=== PATIENT | female | born 1935 | race Caucasian/White ===

== ENCOUNTER 2017-01-02 18:59 | Inpatient (IN) | payer OTHER ==
[~2017-01-02] VITALS: Ht 162.6 cm; Wt 72.1 kg
--- NOTE | ~2017-01-02 | CT57 ---
[facility] A Service of [facility] RADIOLOGY TEXT RESULTS PATIENT: DINA KHALIL LOCATION: [facility] 472 : 36 UNIT #: [id number] AGE: [address]: Huang Arnold MD SEX: F ORDER DR: [id number] [facility] [address]. [place], [place] [address] [id number] I MR#: [id number] Acc #: [id number] NAME: DINA KHALIL : 1935 SEX: F STUDY DATE/TIME: 01/02/2017 21:39 UNIT: [facility] ROOM: [facility] STUDY DESCRIPTION: CT Chest Wo Cont Attending Physician: Laureen Torres M.D. Ordering Physician: Nikita Tanner M.D. Primary Care Physician: Jacque Loera M.D. MEDICAL IMAGING REPORT This report is preliminary unless electronic signature is present EXAM CT chest without contrast DATE: 01/02/2017 HISTORY Fell on Tuesday with back pain and abdominal pain. No bowel movement in 5 days. Pneumothorax seen in the left lower chest on CT abdomen earlier today. COMPARISON CT abdomen and pelvis 01/02/2017. No previous chest imaging at this institution for comparison. PROCEDURE 5 mm axial images through the chest without contrast. Sagittal and coronal reformatted images were obtained. This CT exam was performed with one or more of the following radiation dose reduction techniques: automatic exposure control, adjustment of mA and/or kV according to patient size, and iterative reconstruction. FINDINGS There is a small left basilar pneumothorax with mild atelectasis in the lingula and left lower lobe. No pleural effusion is seen. Mild emphysematous changes are present throughout both lungs. Right lung appears free of acute airspace disease. No mediastinal hematoma. Normal heart size. Tiny esophageal hiatal hernia. No acute displaced left rib fracture is identified. Compression deformity of the T12 vertebral body redemonstrated. No additional thoracic vertebral body fractures are but are identified. [facility] A Service of [facility] RADIOLOGY TEXT RESULTS PATIENT: DINA KHALIL LOCATION: [facility] 472-01 : 36 UNIT #: [id number] AGE: [address]: Huang Arnold MD SEX: F ORDER DR: IMPRESSION 1. Small left basilar pneumothorax with mild lingular and left lower lobe atelectasis. 2. No displaced left rib fracture is seen. 3. Mild emphysema. 4. T12 compression fracture. This has been described on the CT abdomen and pelvis study from the same date. No additional thoracic vertebral body fractures are seen. 5. small esophageal hiatal hernia. 6. Probable tiny gallstone, not included in the body of the report. Dictated by... Cayla Castillo M.D. THIS IS AN ELECTRONICALLY VERIFIED REPORT Cayla Castillo M.D. at 01/03/2017 9:56 AM SHANNON/ronnie TD: 01/03/2017 05:09 JOB #: [id number] MEDICAL IMAGING REPORT Page 1 of 1 COPY
--- NOTE | ~2017-01-02 | CR141 ---
[facility] A Service of [facility] RADIOLOGY TEXT RESULTS PATIENT: DINA KHALIL LOCATION: [place] [address]- : 36 UNIT #: [id number] AGE: [address]: Huang Arnold MD SEX: F ORDER DR: [id number] [facility] [address]. [place], [place] [address] [id number] I MR#: [id number] Acc #: [id number] NAME: DINA KHALIL : 1935 SEX: F STUDY DATE/TIME: 01/02/2017 20:08 UNIT: [facility] ROOM: [facility] STUDY DESCRIPTION: CR Hand Min 3 Views Lt Attending Physician: Laureen Torres M.D. Ordering Physician: Nikita Tanner M.D. Primary Care Physician: Jacque Loera M.D. MEDICAL IMAGING REPORT This report is preliminary unless electronic signature is present EXAM Left hand series HISTORY Trauma. Bruising. Fall . Pain. FINDINGS AP, lateral and oblique radiographs of the left hand are presented. Poor quality examination. The second digit is in flexion on the oblique radiograph and there is digital overlap on the lateral radiograph. No fracture. Degenerative changes in the interphalangeal joints most pronounced distal interphalangeal joint second digit. Mild degenerative changes basal joint of thumb. Chondrocalcinosis in the triangular fibrocartilage ligament. There is no soft tissue defect, subcutaneous air or radiodense foreign body. Is not well corticated calcification along the posterior aspect of the proximal carpal row on the lateral view. Favored to be chronic soft tissue calcification or possibly sequelae of remote trauma. Given its well corticated margins, chronic time course favored. There is no fracture donor site suggested. Dictated by... Leif Ambriz M.D. THIS IS AN ELECTRONICALLY VERIFIED REPORT Leif Ambriz M.D. at 01/03/2017 3:16 PM BINU/ronnie TD: 01/03/2017 02:16 JOB #: [id number] MEDICAL IMAGING REPORT [facility] A Service of [facility] & [facility] RADIOLOGY TEXT RESULTS PATIENT: DINA KHALIL LOCATION: [place] [address] : 36 UNIT #: [id number] AGE: [address]: Huang Arnold MD SEX: F ORDER DR: Page 1 of 1 COPY
--- NOTE | ~2017-01-02 | HP ---
Unit #: [id number] #: [id number] Patient: DINA KHALIL [id number] [address] [address] [id number] I MR#: [id number] NAME: DINA KHALIL ROOM: 472 Age: 81 Sex: F Admission Date: 01/02/2017 : 1935 Attending Physician: Laureen Torres M.D. Primary Care Physician: Jacque Loera M.D. HISTORY AND PHYSICAL CHIEF COMPLAINT Fall with T12 compression fracture, ileus, and tiny left pneumothorax. HISTORY This very pleasant 81-year-old female with GERD and hyperlipidemia, is admitted for a tiny left pneumothorax, ileus, and intractable back pain secondary to T12 compression fracture following a fall. Three days ago the patient slipped while ambulating down stairs, and fell onto her left side. She fell down one step, developed some bruising on her left hand, some ecchymoses around the left hip area, and has been experiencing increasing back pain. That pain has become intractable, she is having difficulty ambulating. Also developed some anorexia, nausea and worsening constipation. States that her left bowel movement was four days ago despite MOM prune juice and Dulcolax suppository. For her pain, she tried Tylenol, Advil and Flexeril without improvement. She presented to this emergency department tonight where a CT scan demonstrated an acute compression fracture of T12. Also noted is a tiny left base pneumothorax without rib fracture. CT scan of the abdomen also demonstrates an ileus. In the ER, she was given Toradol, placed on 2 L of oxygen, given 5 mg of [place]. She denies shortness of breath or chest pain with the above. Blood pressures are also noted to be elevated. PAST MEDICAL HISTORY 1. DJD. 2. Hyperlipidemia. 3. GERD. 4. Bilateral total hip replacements. 5. Skin cancer removed. 6. Appendectomy. ALLERGIES Penicillin and sulfa. HOME MEDICATIONS 1. Nexium 40 mg daily. 2. Zetia 10 mg daily. Crestor 5 mg daily. 3. Aspirin 81 mg daily. FAMILY HISTORY Hypertension. SOCIAL HISTORY Unit #: [id number] #: [id number] Patient: DINA KHALIL The patient lives with her . She is a lifelong nonsmoker, does not drink alcohol. REVIEW OF SYSTEMS Notable for increasing back pain, constipation, DJD, hyperlipidemia, GERD and above mentioned surgeries. All other systems were reviewed and otherwise negative. PHYSICAL EXAMINATION GENERAL APPEARANCE: Pleasant, young appearing, mildly obese 81-year-old female, currently in no acute distress. VITAL SIGNS: Temperature 98.3, pulse 95, respirations 16, blood pressure 178/127 which has improved to a blood pressure of 162/54. HEENT: Eyes PERRLA. Extraocular muscles are intact. Pharynx is benign. NECK: Supple without adenopathy or thyromegaly. CHEST: Clear. BACK: Really without percussion tenderness. CARDIAC: Normal S1 and S2 without S3, S4 or murmur. ABDOMEN: Bowel sounds are present. No hepatosplenomegaly, tenderness or masses. EXTREMITIES: Without C, C or E. Pedal pulses are present. NEUROLOGIC EXAM: The patient is awake, alert, oriented. Her cranial nerves are intact. She has equal strength throughout. She is able to sit up with assistance but does experience quite a bit of low back pain. DIAGNOSTIC STUDIES LABORATORY: Admission labs - hematocrit 38.8, normal white count, platelet count. SMA-12 - glucose 13, sodium 131, chloride of 98, calcium is 8.3. Normal lipase. Urinalysis - 2+ protein, otherwise negative. IMAGING: X-rays of the hip show bilateral total hip replacements. X-ray of the left hand - DJD. CT scan of the abdomen and pelvis - acute T12 compression fracture with a colonic ileus. CT scan without contrast of the chest show small left basilar pneumothorax with left lobe and lingular atelectasis, mild COPD and T12 compression fracture. ASSESSMENT 1. Fall with T12 compression fracture which is acute and in intractable pain. 2. Ileus, no bowel movement for the past four days. 3. New elevated blood pressure which may be related to pain. 4. Hyponatremia. 5. Traumatic tiny left pneumothorax, no rib fracture. 6. GERD. 7. Hyperlipidemia. PLANS 1. IV fluids. 2. Pain control. Unit #: [id number] #: [id number] Patient: DINA KHALIL 3. Laxatives and enemas. 4. Repeat chest x-ray in the morning and place on oxygen. If the pneumothorax is increasing will ask chest surgery to see. 5. SCDs for DVT prophylaxis. 6. Dr. Devan Gavin to see for possible epidural steroid injections. Again, patient is able to move and is not completely immobilized, therefore, may not need a vertebroplasty at this time. 7. Physical therapy to assess. 8. Monitor blood pressure and treat if persistently elevated. Dictated by Shwetha Dumont/lizabeth TD: 01/03/2017 05:01 JOB #: [id number] HISTORY AND PHYSICAL Page 1 of 1 X Laureen Torres MD X HISTORY AND PHYSICAL
--- NOTE | ~2017-01-02 | CT2 ---
[facility] A Service of [facility] RADIOLOGY TEXT RESULTS PATIENT: DINA KHALIL LOCATION: [facility]06-16 : 36 UNIT #: [id number] AGE: [address]: Huang Arnold MD SEX: F ORDER DR: [id number] [facility] [address]. [place], [place] [address] [id number] I MR#: [id number] Acc #: [id number] NAME: DINA KHALIL : 1935 SEX: F STUDY DATE/TIME: 01/02/2017 20:42 UNIT: [facility] ROOM: [facility] STUDY DESCRIPTION: CT Abd and Pelv W Cont Attending Physician: Laureen Torres M.D. Ordering Physician: Nikita Tanner M.D. Primary Care Physician: Jacque Loera M.D. MEDICAL IMAGING REPORT This report is preliminary unless electronic signature is present EXAM CT abdomen and pelvis with contrast DATE: 01/02/2017 HISTORY 81-year-old female who fell on [place] with abdominal pain, back pain. No bowel movement in 5 days. Previous appendectomy. COMPARISON None. PROCEDURE 5 mm axial images from the lung bases to lesser trochanters after intravenous contrast administration. Enteric contrast not administered. Sagittal and coronal reformatted images were obtained. This CT exam was performed with one or more of the following radiation dose reduction techniques: automatic exposure control, adjustment of mA and/or kV according to patient size, and iterative reconstruction. FINDINGS Large amount of fluid and air is demonstrated within the ascending and transverse colon, may represent changes of diarrhea in the appropriate clinical context. The continuing colon appears nonthickened and nondistended. No active bowel wall inflammatory changes are identified. The appendix is surgically absent. No pathologic adenopathy is seen. There is a small left basilar pneumothorax with posterior left lower lobe atelectasis and mild lingular atelectasis. [facility] A Service [facility] RADIOLOGY TEXT RESULTS PATIENT: DINA KHALIL LOCATION: [facility]06-16 : 36 UNIT #: [id number] AGE: [address]: Huang Arnold MD SEX: F ORDER DR: The liver, gallbladder, spleen, and adrenals are normal. Mild cortical scarring in the right lower renal pole, small left renal cyst. Moderate pancreatic parenchymal atrophy. PELVIS FINDINGS: Urinary bladder, uterus and rectum are normal. Bilateral hip replacement changes create beam-hardening artifact obscuring several of the images. Suspected acute or subacute compression deformity of the superior endplate of T12. There is 6 mm bony retropulsion but no subluxation. Probable mild canal stenosis at this level. IMPRESSION 1. Incompletely imaged left basilar pneumothorax. No rib fracture is seen on this study. CT chest would be recommended for further evaluation, particularly in the context of history of trauma. Findings were called to the ER at the time of this dictation. 2. Acute appearing T12 compression fracture with 47% loss of vertebral body height, 6 mm bony retropulsion but no subluxation. Mild canal stenosis. 3. Moderate air-fluid distension of the ascending and transverse colon may represent changes of colonic ileus or changes related to diarrhea, but no evidence of high-grade bowel obstruction or active bowel inflammatory process. 4. Bilateral hip replacement changes. Dictated by... Cayla Castillo M.D. THIS IS AN ELECTRONICALLY VERIFIED REPORT Cayla Castillo M.D. at 01/03/2017 9:56 AM SHANNON/ronnie TD: 01/03/2017 03:00 JOB #: [id number] MEDICAL IMAGING REPORT Page 1 of 1 COPY
--- NOTE | ~2017-01-02 | CR63 ---
[facility] A Service of [facility] RADIOLOGY TEXT RESULTS PATIENT: DINA KHALIL LOCATION: [place] [address] : 36 UNIT #: [id number] AGE: [address]: Huang Arnold MD SEX: F ORDER DR: [id number] [facility] [address] [place], [place] [address] [id number] I MR#: [id number] Acc #: [id number] NAME: DINA KHALIL : 1935 SEX: F STUDY DATE/TIME: 01/03/2017 8:16 UNIT: [facility] ROOM: [facility] STUDY DESCRIPTION: CR Chest 2 View Attending Physician: Huang Arnold M.D. Ordering Physician: Laureen Torres M.D. Primary Care Physician: Jacque Loera M.D. MEDICAL IMAGING REPORT This report is preliminary unless electronic signature is present EXAM Chest x-ray, 01/03 INDICATION Follow up left pneumothorax. Shortness of air for [address] yesterday. FINDINGS Two views of the chest compared with chest CT from 01/02/2017. Cardiac and mediastinal contours are normal. There is some atelectasis at the left base. There is a small persistent left side pneumothorax. It appears to be predominately apical. No right-side pneumothorax is seen. IMPRESSION Tiny left apical pneumothorax with atelectasis at the left lung base. Dictated by... Bon Slater Jr., M.D. THIS IS AN ELECTRONICALLY VERIFIED REPORT Bon Slater Jr., M.D. at 01/03/2017 3:48 PM FRANCY/jazmín TD: 01/03/2017 12:40 JOB #: [id number] MEDICAL IMAGING REPORT Page 1 of 1 COPY
--- NOTE | ~2017-01-02 | CR72 ---
[facility] A Service of [facility] RADIOLOGY TEXT RESULTS PATIENT: DINA KHALIL LOCATION: [place] [address] : 36 UNIT #: [id number] AGE: [address]: Huang Arnold MD SEX: F ORDER DR: [id number] [facility] [address] [place], [place] [address] [id number] I MR#: [id number] Acc #: [id number] NAME: DINA KHALIL : 1935 SEX: F STUDY DATE/TIME: 01/04/2017 7:25 UNIT: [facility] ROOM: [facility] STUDY DESCRIPTION: CR Chest Single View Portable Attending Physician: Huang Arnold M.D. Ordering Physician: Huang Arnold M.D. Primary Care Physician: Jacque Loera M.D. MEDICAL IMAGING REPORT This report is preliminary unless electronic signature is present EXAM Portable chest INDICATIONS Follow up pneumothorax. COMPARISON 01/03/2017 FINDINGS A portable view of the chest was obtained. There is no definite pneumothorax visible on the left side. There is minimal bibasilar atelectasis. Lungs are otherwise clear. The heart size is normal. IMPRESSION Today's portable chest does not clearly demonstrate any pneumothorax in the left side. Dictated by... Bruno Medina M.D. THIS IS AN ELECTRONICALLY VERIFIED REPORT Bruno Medina M.D. at 01/04/2017 1:36 PM CHEY/nicanor TD: 01/04/2017 13:19 JOB #: [id number] MEDICAL IMAGING REPORT Page 1 of 1 COPY
--- NOTE | ~2017-01-02 | DS ---
Unit #: [id number] #: [id number] Patient: DINA KHALIL [id number] [address] [address] [id number] I MR#: [id number] NAME: DINA KHALIL ROOM: 47 Age: 81 Sex: F Admission Date: 01/02/2017 : 1935 Discharge Date: 01/04/2017 Attending Physician: Huang Arnold M.D. Primary Care Physician: Jacque Loera M.D. DISCHARGE SUMMARY PRIMARY DIAGNOSIS Acute T12 compression fracture. SECONDARY DIAGNOSES 1. Ileus. 2. Small pneumothorax, stable. 3. Hypertension, controlled. 4. Hyponatremia, improved. HOSPITAL COURSE The patient was admitted on the evening of the , after a fall with a T12 compression fracture and a very small pneumothorax. Her ileus improved with a bowel regimen which included a Dulcolax suppository x1, upon which she had four bowel movements in the next twelve hours. Initially her pain was such that she couldn't maneuver herself out of a chair or out of a bed, but she was slowly improved and pain was able to be controlled on Ultram with the patient able to stand and sit from a chair independently. She will still need physical therapy at home but doesn't appear to need subacute rehab at this time. She has been fitted for a TLSO brace, and is encouraged to follow back up with her primary care physician to continue getting yearly bone densitometry, and to begin treatment if indicated for possible osteoporosis. The patient and family are concerned about constipation, as side effects from her pain medication, as she did come in with significant constipation at admission so she was given a script for magnesium citrate at the family's request as well as Senokot-S. DISCHARGE DISPOSITION To home with home health. DISCHARGE STATUS Stable. DISCHARGE ACTIVITY With her TLSO brace for the next one-to-two weeks. DISCHARGE DIET Unrestricted. DISCHARGE FOLLOWUP Follow up is with her primary care physician in [id number] weeks. DISCHARGE MEDICATIONS 1. Magnesium citrate 10 oz once over the next seven days as needed for Unit #: [id number] #: [id number] Patient: DINA KHALIL constipation 2. Lortab 5/325 one tablet p.o. q.6h p.r.n. for severe pain 3. Ultram 50 mg p.o. q.6h p.r.n. for mild pain 4. Senokot-S two tablets p.o. b.i.d. 5. Zetia 10 mg p.o. q.h.s. 6. Crestor 5 mg p.o. daily 7. Aspirin 81 mg p.o. daily 8. Nexium 40 mg p.o. daily Dictated by... Shwetha Castaneda/tk TD: 01/05/2017 07:48 JOB #: [id number] DISCHARGE SUMMARY Page 1 of 1 X Huang Arnold MD X DISCHARGE SUMMARY
--- NOTE | ~2017-01-02 | CR150 ---
[facility] A Service of [facility] RADIOLOGY TEXT RESULTS PATIENT: DINA KHALIL LOCATION: [place] [address] : 36 UNIT #: [id number] AGE: [address]: Huang Arnold MD SEX: F ORDER DR: [id number] [facility] [address] [facility]. [place], [place] [address] [id number] I MR#: [id number] Acc #: [id number] NAME: DINA KHALIL : 1935 SEX: F STUDY DATE/TIME: 01/02/2017 20:05 UNIT: [facility] ROOM: [facility] STUDY DESCRIPTION: CR Hip Min 2 Views Lt Attending Physician: Laureen Torres M.D. Ordering Physician: Nikita Tanner M.D. Primary Care Physician: Jacque Loera M.D. MEDICAL IMAGING REPORT This report is preliminary unless electronic signature is present EXAM AP pelvis with AP and frog views left hip (3 images) DATE: 01/02/2017 HISTORY Left hip pain and bruising after falling on . FINDINGS Bilateral hip prostheses are present. No hip prosthesis dislocation or loosening is seen. No periprosthetic fracture. Osteopenia. Pelvic ring appears intact. IMPRESSION 1. Bilateral hip replacement changes. No periprosthetic fracture or hip dislocation. 2. No acute findings. 3. Osteopenia. Dictated by... Cayla Castillo M.D. THIS IS AN ELECTRONICALLY VERIFIED REPORT Cayla Castillo M.D. at 01/03/2017 9:55 AM SHANNON/ronnie TD: 01/03/2017 02:14 JOB #: [id number] MEDICAL IMAGING REPORT Page 1 of 1 COPY
[2017-01-02 19:50] LABS: URINE SOURCE CLEAN CATCH
[2017-01-02 19:56] LABS: BASOPHIL% 0.4 % (0-2.5); EOSINOPHIL% 0.7 % (0.0-7.0); HEMATOCRIT 38.8 % (35.0-45.0); LYMPHOCYTE# 1.5 X10e3 (1.0-3.5); LYMPHOCYTE% 22.8 % (17.0-45.0); MEAN CELL VOLUME 93.4 FL (83-96); MEAN CORPUSCULAR HEMOGLOBIN 31.3 PG (28-34); MEAN CORPUSCULAR HGB CONC 33.5 g/dL (30-36); MEAN PLATELET VOLUME 8.3 FL (6.5-11.5); MONOCYTE# 0.2 X10e3 (0-1.0); MONOCYTE% 3.7 % (3.0-12.0); NEUTROPHIL# 4.8 X10e3 (1.5-7.1); NEUTROPHIL% 72.4 % (40-75); PLATELET COUNT 205 X10e3 (140-420); RED BLOOD COUNT 4.15 X10e (3.90-5.30); URINE APPEARANCE CLEAR; URINE BILIRUBIN NEG (NEG); URINE BLOOD NEG (NEG); URINE COLOR YELLOW; URINE GLUCOSE NEG (NEG); URINE KETONE 3+ (NEG); URINE LEUKOCYTE ESTERASE NEG (NEG); URINE NITRATE NEG (NEG); URINE PROTEIN 2+ (NEG); URINE SPECIFIC GRAVITY 1.028 (1.003-1.035); URINE UROBILINOGEN 0.2 MG/DL (NEG); WHITE BLOOD COUNT 6.7 X10e3 (4.0-10.5)
[2017-01-02 19:57] LABS: DIFF IND NO
[2017-01-02 19:58] LABS: CULTURE INDICATED? NO; URINE BACTERIA AUWI NEG (NEGATIVE); URINE SQUAMOUS EPITHELIAL CELL NONE SEEN /[HPF]; UWBCS1 AUWI 0-2 (0-5)
[2017-01-02 20:20] LABS: ALBUMIN SERUM 3.5 g/dL (3.5-5.0); BILIRUBIN, DIRECT 0.2 mg/dL (0.0-0.2); BILIRUBIN,INDIRECT 0.8 mg/dL (0.0-0.9); CALCIUM SERUM 8.3 mg/dL (8.4-10.2); CREATININE SERUM 0.6 mg/dL (0.6-1.4); GLOM FILT RATE Estimated 86.1 mL/min (>60); POTASSIUM 3.8 mmol/L (3.5-5.1); PROTEIN TOTAL SERUM 6.5 g/dL (6.0-8.3)
[2017-01-03 07:52] LABS: BASOPHIL% 0.5 % (0-2.5); EOSINOPHIL# 0.1 X10e3 (0-0.7); EOSINOPHIL% 1.2 % (0.0-7.0); HEMATOCRIT 37.8 % (35.0-45.0); HEMOGLOBIN 12.8 gm/dL (12.0-16.0); LYMPHOCYTE# 1.7 X10e3 (1.0-3.5); LYMPHOCYTE% 26.5 % (17.0-45.0); MEAN CELL VOLUME 93.5 FL (83-96); MEAN CORPUSCULAR HEMOGLOBIN 31.7 PG (28-34); MEAN CORPUSCULAR HGB CONC 33.9 g/dL (30-36); MEAN PLATELET VOLUME 8.9 FL (6.5-11.5); MONOCYTE# 0.2 X10e3 (0-1.0); MONOCYTE% 3.6 % (3.0-12.0); NEUTROPHIL# 4.4 X10e3 (1.5-7.1); NEUTROPHIL% 68.2 % (40-75); PLATELET COUNT 197 X10e3 (140-420); RED BLOOD COUNT 4.05 X10e (3.90-5.30); RED CELL DISTRIBUTION WIDTH 13.2 % (11.0-15.5); WHITE BLOOD COUNT 6.5 X10e3 (4.0-10.5)
[2017-01-03 07:58] LABS: BUN/CREATININE RATIO 12.85; CALCIUM SERUM 8.4 mg/dL (8.4-10.2); CREATININE SERUM 0.7 mg/dL (0.6-1.4); GLOM FILT RATE Estimated 81.8 mL/min (>60); POTASSIUM 4.1 mmol/L (3.5-5.1)
[2017-01-03 07:59] LABS: DIFF IND NO
[2017-01-04 03:47] LABS: CALCIUM SERUM 8.2 mg/dL (8.4-10.2); CREATININE SERUM 0.5 mg/dL (0.6-1.4); GLOM FILT RATE Estimated 91.4 mL/min (>60); POTASSIUM 4.2 mmol/L (3.5-5.1)
[2017-01-04] MEDS ORDERED: LORTAB 5-325 M1 EACH PO (17:23)
[2017-01-04] MEDS ORDERED: SENNA PO (17:25)
[2017-01-26] MEDS ORDERED: MULTIVITAMINS1 EAC3 PO (07:59)
[2017-01-26] MEDS ORDERED: FISH OIL 500 M1 EAC1 PO (07:59)
[2017-01-26] MEDS ORDERED: CALTRATE 600+D PO (08:00)
[2017-01-26] MEDS ORDERED: VITAMIN D1000 UNIT PO (08:01)
[2017-01-26] MEDS ORDERED: CITRATE OF MAG296 M1 PO (17:23)
[2017-01-26] MEDS ORDERED: ULTRAM PO (17:24)
[2017-01-26] MEDS ORDERED: ZETIA PO (21:10)
[2017-01-26] MEDS ORDERED: NEXIUM PO (21:10)
[2017-01-26] MEDS ORDERED: ASPIRIN PO (21:11)
[2017-01-26] MEDS ORDERED: CRESTOR5 MG PO (21:11)
== END 2017-01-04 18:10 | disposition home health service (06) | DRG 200 ==
LOC: CED 18:59 → CEDOF 22:44 → CED 22:44 → CEDOF 23:15 → C4C 01-03 00:10
PROVIDERS: Emergency Medicine; Internal Medicine
DX: S27.0XXA Traumatic pneumothorax, initial encounter (principal); S22.089A Unspecified fracture of T11-T12 vertebra, initial encounter for closed fracture; K56.7 Ileus, unspecified; E87.1 Hypo-osmolality and hyponatremia; W10.9XXA Fall (on) (from) unspecified stairs and steps, initial encounter; Y92.009 Unspecified place in unspecified non-institutional (private) residence as the place of occurrence of the external cause; I10 Essential (primary) hypertension; K59.00 Constipation, unspecified; K21.9 Gastro-esophageal reflux disease without esophagitis; E78.5 Hyperlipidemia, unspecified; R63.0 Anorexia; Z68.27 Body mass index [BMI] 27.0-27.9, adult; Z96.643 Presence of artificial hip joint, bilateral; Z85.828 Personal history of other malignant neoplasm of skin; Z88.0 Allergy status to penicillin; Z88.2 Allergy status to sulfonamides; Z82.49 Family history of ischemic heart disease and other diseases of the circulatory system
CPT/HCPCS: 36415; 71010; 71020; 71250; 73130; 73502; 74177; 80048; 80076; 81003; 83690; 85025; 94760; 96374; 97116; 97161; 97530; 99285; G8978-GP; G8979-GP; J1885; Q9967

== ENCOUNTER → 2017-01-18 | Outpatient (CLI) | payer MEDICARE ==
[~2017-01-18] MED LIST: ASPIRIN PO; CALTRATE 600+D PO; CITRATE OF MAG296 M1 PO; CRESTOR5 MG PO; FISH OIL 500 M1 EAC1 PO; LORTAB 5-325 M1 EACH PO; MULTIVITAMINS1 EAC3 PO; NEXIUM PO; SENNA PO; ULTRAM PO; VITAMIN D1000 UNIT PO; ZETIA PO
--- NOTE | ~2017-01-18 | MR113 ---
[facility] A Service of [facility] RADIOLOGY TEXT RESULTS PATIENT: DINA KHALIL [facility] UNIT #: [id number] AGE: [address]: Devan Gavin MD SEX: F ORDER DR: [id number] [facility] [address] [facility]. [place], [place] [address] [id number] MR#: [id number] Acc #: [id number] NAME: DINA KHALIL : 1935 SEX: F STUDY DATE/TIME: 01/18/2017 16:30 UNIT: [facility] ROOM: STUDY DESCRIPTION: MR Lumbar Wo Contrast Attending Physician: Devan Gavin M.D. Referring Physician: Devan Gavin M.D. Ordering Physician: Devan Gavin M.D. Primary Care Physician: Jacque Loera M.D. MRI CENTER REPORT This report is preliminary unless electronic signature is present. EXAM MRI of the lumbar spine without contrast HISTORY 81-year-old female fell December 30. Intense pain mid to lower back when changing positions. T12 compression fracture noted on CT abdomen and pelvis performed 01/02/2017. COMPARISON CT abdomen and pelvis 01/02/2017. FINDINGS Multiplanar, multiecho imaging was performed of the lumbar spine utilizing a high field magnet and dedicated protocol. Examination demonstrates abnormal marrow signal within the T12 vertebral body with predominantly low T1 signal and heterogeneously T2 hyperintense signal on the sagittal T2 and STIR sequences. The compression fracture contributes to approximately 35% loss of the central vertebral body height with a biconcave fracture. There is mild retropulsion of the posterior vertebral wall contributing to mild spinal stenosis. This effaces the thecal sac but does not impinge the cord. Clinical history and imaging features most compatible with an osteoporotic compression fracture. At L1-2, there is mild degenerative disc changes with predominantly anterior disc bulging. No spinal or foraminal stenosis. At L2-3, mild disc desiccation. No significant spinal or foraminal stenosis. At L3-4, mild circumferential disc bulging but no significant spinal or foraminal stenosis. STS. [facility] A Service of [facility] RADIOLOGY TEXT RESULTS PATIENT: DINA KHALIL [id number] 37 UNIT #: [id number] AGE: [address]: Devan Gavin MD SEX: F ORDER DR: At L4-5, mild circumferential disc bulge contributing to mild bilateral foraminal stenosis. At L5-S1, there is circumferential disc protrusion, disc bulge contributing to mild bilateral foraminal stenosis. Posterior elements demonstrate only minimal facet arthropathy. Paravertebral soft tissues unremarkable. There is normal termination of the conus. There is a small amount of anterior endplate edema bordering the L5-S1 disc space. This is in combination with a prominent anterior disc bulge at the L5-S1 level. IMPRESSION 1. Biconcave T12 compression fracture with approximately 35% loss of the central vertebral body height and mild retropulsion of the posterior vertebral wall estimated about 5-6 mm of retropulsion. This effaces the thecal sac but does not impinge the cord. This is compatible with an osteoporotic compression fracture. 2. Mild multilevel degenerative disc changes with circumferential disc bulging at L4-5 and L5-S1 contributing to mild foraminal stenosis. Dictated by... Cindy Peres M.D. THIS IS AN ELECTRONICALLY VERIFIED REPORT Cindy Peres M.D. at 01/21/2017 8:04 AM ANSON/jazmín TD: 01/20/2017 07:57 JOB #: [id number] MRI CENTER REPORT Page 1 of 1 COPY
--- NOTE | ~2017-01-18 | MR176 ---
[facility] A Service of [facility] RADIOLOGY TEXT RESULTS PATIENT: DINA KHALIL LOCATION: [facility] : 37 UNIT #: [id number] AGE: [address]: Devan Gavin MD SEX: F ORDER DR: [id number] [place] [address] [place], [place] [address] [id number] O MR#: [id number] Acc #: [id number] NAME: DINA KHALIL : 1935 SEX: F STUDY DATE/TIME: 01/18/2017 16:30 UNIT: [facility] ROOM: STUDY DESCRIPTION: MR Thoracic Wo Contrast Attending Physician: Devan Gavin M.D. Referring Physician: Devan Gavin M.D. Ordering Physician: Devan Gavin M.D. Primary Care Physician: Jacque Loera M.D. MRI CENTER REPORT This report is preliminary unless electronic signature is present. EXAM MRI of the thoracic spine without contrast dated 01/18/2017. COMPARISON MRI lumbar spine without contrast dated 01/18/2017. HISTORY Patient fell on December 30 down the stairs from the kitchen to the garage. Patient has had intense pain in the mid and lower back at that time. FINDINGS Multisequence, multiplanar imaging of the thoracic spine was obtained without contrast. There is a T12 compression fracture with 45% to 50% maximal stenosis of T12 vertebral body. There is retropulsion of fragments posteriorly into the canal causing [id number] canal stenosis without direct cord compression. Bone edema is noted in the vertebral body and it extends into bilateral pedicles. It involves anterior and the middle column. No jumped or perched facet joints could be identified. Mild adjacent paravertebral soft tissue edema and inflammation is present without any large hematoma. The other vertebral body heights and alignment are preserved. Cord demonstrates normal expected course, caliber and signal. C7-T1: Disc-osteophyte complex with central moderate protrusion/small extrusion without any canal stenosis or cord compression. T4-5: Disc-osteophyte complex with right central to left subarticular protrusion with mild mass effect on the adjacent thecal sac. No canal stenosis. T5-6: Tiny right central protrusion with annular fissure. No canal stenosis or neural foraminal narrowing. [facility] A Service of [facility] RADIOLOGY TEXT RESULTS PATIENT: DINA KHALIL [facility] UNIT #: [id number] AGE: [address]: Devan Gavin MD SEX: F ORDER DR: T6-7: Mild disc bulge with tiny central protrusion with annular fissure. No canal stenosis or neural foraminal narrowing. T7-8: There is a well-defined small central protrusion without canal stenosis or neural foraminal narrowing. Right costovertebral joint arthritic changes are probably present. T9-10: Disc-osteophyte complex with tiny central protrusion/annular fissure and mild bilateral facet changes without canal stenosis or neural foraminal narrowing. IMPRESSION 1. Compression fracture of T12 is noted with bone edema and fracture line. Edema is noted throughout the vertebral body with extension into bilateral pedicles. There is about 45% to 50% maximal mid-vertebral body height loss. There is retropulsion of fragment into the canal causing [id number] canal stenosis with displacement of cord posteriorly without cord compression. There is mild inflammatory change in the surrounding pre- and paravertebral soft tissues. 2. Degenerative mild changes are noted involving the discs as described above, without canal stenosis or neural foraminal narrowing. Dictated by... Hubert Hrenández M.D. THIS IS AN ELECTRONICALLY VERIFIED REPORT Hubert Hernández M.D. at 01/20/2017 6:37 PM CPR/psc TD: 01/20/2017 08:46 JOB #: [id number] MRI CENTER REPORT Page 1 of 1 COPY
== END | disposition home or self-care (01) ==
LOC: CMRI 15:50
DX: S22.089D Unspecified fracture of T11-T12 vertebra, subsequent encounter for fracture with routine healing (principal); M51.36 Other intervertebral disc degeneration, lumbar region; M51.34 Other intervertebral disc degeneration, thoracic region; M51.37 Other intervertebral disc degeneration, lumbosacral region; M51.24 Other intervertebral disc displacement, thoracic region; M48.04 Spinal stenosis, thoracic region
CPT/HCPCS: 72146; 72148